=== PATIENT | male | born 1975 | race Two or more races ===

== ENCOUNTER 2023-03-01 22:31 | Emergency (ER) | payer OTHER ==
[~2023-03-01] VITALS: Ht 172.7 cm; Wt 70.8 kg
[2023-03-02 02:24] LABS: HEMATOCRIT 48.5 % (39.0-48.0); HEMOGLOBIN 15.9 g/dL (13-16.00); MEAN CELL VOLUME 92.9 fL (80.0-100.00); MEAN CORPUSCULAR HEMOGLOBIN 30.5 pg (27.00-32.0); MEAN CORPUSCULAR HGB CONC 32.8 g/dl (32.0-36.0); PLATELET COUNT 416 K/uL (150-450); RED BLOOD COUNT 5.22 M/uL (4.00-6.00); RED CELL DISTRIBUTION WIDTH 12.7 % (11.5-14.5)
[2023-03-02 02:48] LABS: BILIRUBIN TOTAL 0.64 mg/dL (0.3-1.2); CALCIUM 9.4 mg/dL (8.5-10.1); CREATININE SERUM 0.9 mg/dL (0.70-1.30); GFR 90.84; GLOBULINA 4.8 G/DL (2.4-3.5); POTASSIUM 3.78 mEq/L (3.5-5.1); TOTAL PROTEIN 8.8 gm/dL (6.4-8.2)
[2023-03-02] MEDS ORDERED: ZOFRAN8 MG PO (03:40)
[2023-03-02] MEDS ORDERED: PEPCID AC20 MG PO (03:40)
== END 2023-03-02 04:04 | disposition home or self-care (01) ==
LOC: ER 22:32
PROVIDERS: General Practice
DX: K52.89 Other specified noninfective gastroenteritis and colitis (principal)